=== PATIENT | male | born 1985 | race Caucasian/White ===

== ENCOUNTER 2022-09-16 20:07 | Emergency (ER) | payer OTHER, SELFPAY ==
[2022-09-16 20:31] VITALS: BP 136/81; PULSE 68; RESP 18; TEMP 36.4; O2SAT 98
--- NOTE | 2022-09-16 20:51 | ED.HA ---
HPI - Headache General Time Seen by Provider: 20:51 Date Seen: 09/16/22 Chief Complaint: Headache/Migraine Stated Complaint: headache/pressure in head Time Seen by Provider: 09/16/22 20:50 Source: patient, RN notes reviewed and old records reviewed Mode of arrival: ambulatory Limitations: no limitations History of Present Illness HPI Narrative: Jd is a very pleasant 37-year-old male previously healthy who comes to the emergency room with multiple medical complaints. Patient states over the past few weeks he has not been feeling well. He describes episodes of lightheadedness, left-sided neck pain worsened by movement, an infection in his right eye lasting 3-4 days now resolved and now 24-48 hours of increasing pressure in his forehead and scalp. He notes that he had a headache yesterday and that Advil seemed to help him. It was associated with nausea. Today he notes no headache but describes an uncomfortable feeling of pressure in his head. He notes that he has been unusually fatigued over the past couple weeks after having been on a fairly intense workout program. He states that he just feels blah and not himself at all. He denies sore throat, runny nose, shortness of breath or chest pain. He notes he is developed rashes that are pruritic on his arms bilaterally. He does not have this on his legs. He notes that occasionally his hands have been falling asleep but has no symptoms at this time. He denies fevers, unusual weight loss or weight gain. He does appear very concerned with not feeling himself. No past history of anxiety or major medical problems. Related Data Home Medications Medication Instructions Recorded Confirmed albuterol 90 mcg/actuation aerosol mcg inhalation 09/16/22 inhaler Allergies Allergy/AdvReac Type Severity Reaction Status Date / Time No Known Drug Allergies Allergy Verified 09/16/22 20:30 Review of Systems Status of ROS: Reports: 10 or more systems reviewed and unremarkable except as noted in History and below Const: Reports: fatigue and malaise; Denies: fever, chills or change in weight Eyes: Reports: blurry vision (Occasionally but not right now) ENMT: Reports: neck pain (Especially when turning to the left and looking up) and tinnitus (Occasionally but not right now); Denies: throat pain, throat swelling, difficulty swallowing, swelling of lips/tongue or nasal discharge Cardio: Reports: lightheadedness (Occasionally but not right in a); Denies: chest pain, swelling of feet/ankles or shortness of breath with exertion Resp: Denies: shortness of breath, cough or wheezing GI: Reports: nausea; Denies: abdominal pain, vomiting, diarrhea or difficulty swallowing : Denies: painful urination or urinary frequency Musculo: Reports: neck pain (Especially when turning to the left and looking up); Denies: back pain or extremity pain Integ/Breast: Denies: rash, itching or redness Neuro: Reports: headache (Will start) and numbness in extremities (Occasionally bilateral hands); Denies: lack of coordination or confusion Endo: Reports: fatigue Allergy/Immuno: Denies: throat swelling or wheezing PFSH PFSH Social History Smoking Status: Never smoker Do you use any of these nicotine containing products: None Non-prescribed substance use: denies use Exam Narrative: Exam Narrative: Patient is alert and oriented. Makes good eye contact. EOM is full and pupils equal round and reactive. No evidence of drainage erythema scleral injection. No photophobia Head is atraumatic normocephalic. No evidence of facial swelling. Oral cavity without erythema or exudate. Neck is supple without lymphadenopathy. Heart with regular rate and rhythm. Lungs are clear. Abdomen soft nontender. Moving all extremities. No evidence of calf tenderness with palpation. Const: Vital Signs, click to edit/add: Vital Signs - 24 hr 09/16/22 20:31 Temperature 97.6 F Pulse Rate [Left P ulse Oximeter] 68 Respiratory Rate 18 Blood Pressure [Ri ght Upper Arm] 136/81 Pulse Oximetry 98 Oxygen Delivery Me thod Room Air Documenting provider has reviewed patient's vital signs: yes Course Course Hospital Course: Patient has multiple medical complaints in numerous systems and I suspect there is probably more than 1 thing going on at this time. He is describing a discomfort in dizziness that seems to be out of proportion to my exam here today. 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 His EOM is full but he is describing intermittent blurred vision and sometimes tingling in his hands. I have suggested a head CT any is very receptive of this idea. I would also recommend chest x-ray, EKG as well as blood work to include CBC, thyroid, comprehensive, magnesium, vitamin-D and urinalysis. Vital Signs Vital signs: Initial Vital Signs Temperature 97.6 F 09/16/22 20:31 Temperature Source Temporal Artery Scan 09/16/22 20:31 Pulse Rate 68 09/16/22 20:31 Pulse Rhythm Regular 09/16/22 20:31 Respiratory Rate 18 09/16/22 20:31 Blood Pressure 136/81 09/16/22 20:31 Blood Pressure Mean 99 09/16/22 20:31 Blood Pressure Position Sitting 09/16/22 20:31 Pulse Oximetry 98 09/16/22 20:31 Oxygen Delivery Method Room Air 09/16/22 20:31 Vital Signs Temperature 97.6 F 09/16/22 20:31 Pulse Rate 68 09/16/22 20:31 Respiratory Rate 18 09/16/22 20:31 Blood Pressure 136/81 09/16/22 20:31 Pulse Oximetry 98 09/16/22 20:31 Oxygen Delivery Method Room Air 09/16/22 20:31 Temperature 97.6 F 09/16/22 20:31 Pulse Rate 68 09/16/22 20:31 Respiratory Rate 18 09/16/22 20:31 Blood Pressure 136/81 09/16/22 20:31 Pulse Oximetry 98 09/16/22 20:31 Oxygen Delivery Method Room Air 09/16/22 20:31 MDM - Headache MDM Narrative Medical decision making narrative: 1. Vitamin-D deficiency-this certainly could explain his fatigue and malaise. I would suggest initiation of vitamin-D with magnesium. Patient will need to follow up with primary MD for ongoing monitoring. I have given him names at both the [facility] and [facility] for possible follow-up. 2. 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 I was able to communicate with Dr. Palma who suggest steroids. However, in light of Jd's irritability that he is describing I hesitate to start this. I think his irritability will improve with the use of vitamin-D and follow-up. I would have him follow-up with our ENT for further evaluation. At this time there is no loss of hearing per the patient. 3. History of right eye infection/blurred vision-no symptoms this evening and eye exam was normal. 4. Neck pain-patient has 1 sided neck pain exacerbated by left rotation and looking up. Essentially he has a positive Spurling sign based on his complaints. No weakness detected in the upper extremities tonight. He may need to follow-up with primary MD for physical therapy consultation or recheck. 5. Disposition-at this time patient is discharged home. EKG reassuring as was chest x-ray and blood work. COVID and strep negative. We are recommending patient follow-up with primary MD for evaluation of vitamin-D deficiency and other ongoing complaints. Recommend follow-up with ENT for specialty consultation. Phone number was given. Return to the emergency room for worsening symptoms and as needed. Dictation done with voice recognition, and as a result, wrong word or [id number] substitutions may have occurred.? There may be errors in the script that have gone undetected.? Please consider this when interpreting information found in this chart. Medical Records Attestation: I reviewed the patient's medical records. Lab Data Attestation: I reviewed the patient's lab results. Labs: Lab Results 09/16/22 09/16/22 09/16/22 Range/Units 21:20 21:25 21:50 WBC 6.25 (4.50-11.00) K/uL RBC 5.40 (4.30-5.90) m/uL Hgb 15.8 (13.5-17.5) gm/dL Hct 46.9 (37.0-53.0) % MCV 87 (80-100) fL MCH 29 (26-34) pg MCHC 34 (32-36) gm/dL RDW Coeff of Una 13.0 (11.5-15.5) % Plt Count 257 (140-440) K/uL Neut % (Auto) 58.9 (42.0-72.0) % Lymph % (Auto) 29.6 (20-44) % [place] % (Auto) 7.8 (0.0-11.0) % Eos % (Auto) 3.2 (0.0-7.0) % Baso % (Auto) 0.3 (0.0-3.0) % Neut # (Auto) 3.68 (1.7-7.0) K/uL Lymph # (Auto) 1.85 (0.90-2.90) K/uL [place] # (Auto) 0.50 (0.00-0.90) K/UL Eos # (Auto) 0.20 (0.00-0.50) K/uL Baso # (Auto) 0.02 (0.00-0.30) K/uL Sodium 138 (135-149) mmol/L Potassium 4.6 (3.6-5.1) mmol/L Chloride 106 (96-114) mmol/L Carbon Dioxide 23 (20-32) mmol/L BUN 15 (5-24) mg/dL Creatinine 0.8 (0.5-1.5) mg/dL Estimated GFR 116 ml/min Glucose 89 (60-115) mg/dL Calcium 9.1 (8.4-10.6) mg/dL Magnesium 2.0 (1.5-2.6) mg/dL Total Bilirubin 0.7 (0.1-1.5) mg/dL AST 28 (12-35) U/L ALT 46 (4-50) U/L Alkaline Phosphatase 46 (40-150) U/L C-Reactive Protein 0.6 (0.5-1.0) mg/dL Total Protein 7.8 (6.0-8.3) g/dL Albumin 4.6 (3.3-5.0) g/dL 25-OH Vitamin D Total 20 L (30-80) ng/mL TSH 1.910 (0.270-4.200) uIU/mL Urine Color Yellow (Yellow) Urine Appearance Clear (Clear) Urine pH 5.0 (5.0-8.5) Ur Specific [place] 1.015 (1.000-1.030) Urine Protein Negative (Negative) Urine Glucose (UA) Negative (Negative) Urine Ketones Negative (Negative) Urine Blood Trace-intact A (Negative) Urine Nitrite Negative (Negative) Urine Bilirubin Negative (Negative) Urine Urobilinogen 0.2 (0.2-1.0) Ur Leukocyte Esterase Negative (Negative) Urine RBC 0-2 (0-2) Urine WBC 0-2 (0-5) Ur Squamous Epith Cells None (None-Few) Urine Bacteria None (None) SARS-CoV-2 (PCR) Negative SARS-CoV-2 (Negative) Group A Strep DNA NOT DETECTED (Not Detectd) Imaging Data CT scan - head: Attestation: I have reviewed the pertinent imaging results. My impression: I do not note any tumors, underlying masses Radiologist's impression: Brain parenchyma and extra-axial spaces: The cheema-white differentiation is normal.? No sign of mass, hemorrhage, or midline shift. No extra-axial fluid collection.? Skull base and calvarium: The visualized paranasal sinuses and mastoid air cells demonstrate no acute or significant findings.? The visualized orbits are grossly unremarkable.? No skull fractures.? There is dehiscence of the right superior semicircular canal. IMPRESSION: No evidence of an acute intracranial abnormality. Dehiscence of the right superior semicircular canal. Recommend correlation for the Tullio phenomenon. Chest x-ray: Attestation: I have reviewed the pertinent imaging results. Radiologist's impression: Cardiovascular and mediastinum:? Heart size and vasculature are normal in caliber and appearance.? Lungs and pleural spaces:? The lungs are clear. No pleural effusion or pneumothorax.? Bones and soft tissues:? Unremarkable. IMPRESSION: No evidence of an acute pulmonary process. Sinus CT: Attestation: I have reviewed the pertinent imaging results. My impression: No fluid levels. Radiologist's impression: Paranasal sinuses: Well developed and clear.? No fluid or mucosal thickening. The ostiomeatal units are patent. The fovea ethmoidalis and orbital daniel are intact. The nasal septum is mildly deviated to the left. There are bilateral michael bullosa. Orbits and globes: Unremarkable. Visualized intracranial contents: Unremarkable.? Miscellaneous: Dehiscence of the left semicircular canal. Soft tissues: Unremarkable.? IMPRESSION: No evidence of sinusitis. Dehiscence of the left semicircular canal. Recommend correlation for the Tullio phenomenon. ECG Data Attestation: I personally reviewed and interpreted this ECG as follows: ECG interpretation date: 09/16/22 Interpretation: EKG by my read shows sinus rhythm at a rate of 72. No acute ST or T-wave changes are noted. Discharge Plan Discharge Clinical Impression: Inner ear dysfunction, Vitamin D deficiency Patient Disposition: Home, Self-Care Condition: Unchanged Additional Instructions: 1. Start vitamin-D with magnesium tonight. Follow-up with primary care. This could include the [facility] with either Dr. Byrne or Doris. Alternatively, Dr. Pelletier at [facility] would be appropriate. [facility] phone number is [phone] and [facility] is [phone] 2. Follow-up with Dr. Palma for recheck of semi circular canal dehiscence. The phone number for appointment is [phone]. 3. Return to the emergency room for worsening symptoms. Prescriptions: No Action albuterol 90 mcg/actuation aerosol inhalation Follow Up/Referrals: Provider,Not a Local [Primary Care Provider] - Stand Alone Forms: Response Biomedical Info Instructions
--- NOTE | 2022-09-16 21:09 | CRLHL7_ITS ---
For Patients: As a result of the Century Cures Act, medical imaging exams and procedure reports are released immediately into your electronic medical record. You may view this report before your referring provider. If you have questions, please contact your health care provider. INDICATION: Fatigue. TECHNIQUE: CT head without contrast. COMPARISON: None. FINDINGS: CSF spaces: Within normal limits for age. Brain parenchyma and extra-axial spaces: The cheema-white differentiation is normal. No sign of mass, hemorrhage, or midline shift. No extra-axial fluid collection. Skull base and calvarium: The visualized paranasal sinuses and mastoid air cells demonstrate no acute or significant findings. The visualized orbits are grossly unremarkable. No skull fractures. There is dehiscence of the right superior semicircular canal. IMPRESSION: No evidence of an acute intracranial abnormality. Dehiscence of the right superior semicircular canal. Recommend correlation for the Tullio phenomenon. Please note that all CT scans at this facility use dose modulation, iterative reconstruction, and/or weight-based dosing when appropriate to reduce radiation dose to as low as reasonably achievable. Dictated by Jd Burch MD @ 09/16/2022 10:27:07 PM (Electronically Signed)
--- NOTE | 2022-09-16 21:09 | CRLHL7_ITS ---
For Patients: As a result of the Century Cures Act, medical imaging exams and procedure reports are released immediately into your electronic medical record. You may view this report before your referring provider. If you have questions, please contact your health care provider. INDICATION: Fatigue. TECHNIQUE: Chest 1 view. Permanently recorded images are archived. COMPARISON: None. FINDINGS: Cardiovascular and mediastinum: Heart size and vasculature are normal in caliber and appearance. Lungs and pleural spaces: The lungs are clear. No pleural effusion or pneumothorax. Bones and soft tissues: Unremarkable. IMPRESSION: No evidence of an acute pulmonary process. Dictated by Jd Burch MD @ 09/16/2022 10:23:53 PM (Electronically Signed)
--- NOTE | 2022-09-16 21:15 | CRLHL7_ITS ---
For Patients: As a result of the Century Cures Act, medical imaging exams and procedure reports are released immediately into your electronic medical record. You may view this report before your referring provider. If you have questions, please contact your health care provider. INDICATION: Fatigue TECHNIQUE: CT sinus without contrast. Permanently recorded images are archived. COMPARISON: None. FINDINGS: Paranasal sinuses: Well developed and clear. No fluid or mucosal thickening. The ostiomeatal units are patent. The fovea ethmoidalis and orbital daniel are intact. The nasal septum is mildly deviated to the left. There are bilateral michael bullosa. Orbits and globes: Unremarkable. Visualized intracranial contents: Unremarkable. Miscellaneous: Dehiscence of the left semicircular canal. Soft tissues: Unremarkable. IMPRESSION: No evidence of sinusitis. Dehiscence of the left semicircular canal. Recommend correlation for the Tullio phenomenon. Please note that all CT scans at this facility use dose modulation, iterative reconstruction, and/or weight-based dosing when appropriate to reduce radiation dose to as low as reasonably achievable. Dictated by Jd Burch MD @ 09/16/2022 10:32:32 PM (Electronically Signed)
[2022-09-16 21:59] LABS: Basophils Absolute Auto 0.02 K/uL (0.00-0.30); Basophils Percent Auto 0.3 % (0.0-3.0); Eosinophils Percent Auto 3.2 % (0.0-7.0); Hematocrit 46.9 % (37.0-53.0); Hemoglobin* 15.8 gm/dL (13.5-17.5); Immature Granulocytes Abs Auto 0.01 K/uL (0.00-0.30); Immature Granulocytes Pct Auto 0.2 %; Lymphocytes Absolute Auto 1.85 K/uL (0.90-2.90); Lymphocytes Percent Auto 29.6 % (20-44); Mean Corpuscular HGB Conc 34 gm/dL (32-36); Mean Corpuscular Hemoglobin 29 pg (26-34); Mean Corpuscular Volume 87 fL (80-100); Monocytes Percent Auto 7.8 % (0.0-11.0); Neutrophils Absolute Auto 3.68 K/uL (1.7-7.0); Neutrophils Percent Auto 58.9 % (42.0-72.0); Platelet Count* 257 K/uL (140-440); White Blood Count* 6.25 K/uL (4.50-11.00)
[2022-09-16 22:03] LABS: Slide Review Reflex No
[2022-09-16 22:05] LABS: Appearance Urine Clear (Clear); Bilirubin Urine Negative (Negative); Blood Urine Trace-intact (Negative); Color Urine Yellow (Yellow); Glucose Urine Negative (Negative); Ketones Urine Negative (Negative); Leukocyte Esterase Urine Negative (Negative); Nitrite Urine Negative (Negative); Protein Urine Negative (Negative); Specific Gravity Urine 1.015 (1.000-1.030); Urobilinogen Urine 0.2 (0.2-1.0)
[2022-09-16 22:19] LABS: Strep A DNA Probe* NOT DETECTED (Not Detectd)
[2022-09-16 22:20] LABS: SARS PCR* Negative SARS-CoV-2 (Negative)
[2022-09-16 22:20] LABS: Albumin* 4.6 g/dL (3.3-5.0); Chloride* 106 mmol/L (96-114); Sodium* 138 mmol/L (135-149)
[2022-09-16 22:21] LABS: Potassium* 4.6 mmol/L (3.6-5.1)
[2022-09-16 22:22] LABS: RBC Urine 0-2 (0-2); WBC Urine 0-2 (0-5)
[2022-09-16 22:23] LABS: Alkaline Phosphatase* 46 U/L (40-150); Aspartate Amino Transferase* 28 U/L (12-35); Bilirubin Total* 0.7 mg/dL (0.1-1.5); Carbon Dioxide* 23 mmol/L (20-32); Creatinine* 0.8 mg/dL (0.5-1.5); Estimated Glomerular Filt Rate 116 ml/min; Total Protein* 7.8 g/dL (6.0-8.3)
[2022-09-16 22:24] LABS: Alanine Aminotransferase* 46 U/L (4-50); Blood Urea Nitrogen* 15 mg/dL (5-24); Calcium* 9.1 mg/dL (8.4-10.6); Glucose* 89 mg/dL (60-115)
[2022-09-16 22:26] LABS: C Reactive Protein* 0.6 mg/dL (0.5-1.0)
[2022-09-16 22:56] LABS: Vitamin D 25 Hydroxy* 20 ng/mL (30-80)
== END 2022-09-17 00:06 | disposition home or self-care (01) ==
PROVIDERS: Emergency Provider Family Medicine
DX: H83.90 Unspecified disease of inner ear, unspecified ear (principal); E55.9 Vitamin D deficiency, unspecified
CPT/HCPCS: 36415; 70450; 70486; 71045; 80053; 81001; 82306; 83735; 84443; 85025; 86140; 87635; 87651; 93005; 99284; 99285